=== PATIENT | female | born 1960 | race Hispanic/Latino ===

== ENCOUNTER 2018-08-28 13:26 | Emergency (ER) | payer BC ==
--- NOTE | 2018-08-28 14:03 | RAD ---
EXAM: Right ankle 3 views: HISTORY: Right ankle injury COMPARISON: None FINDINGS: Calcaneal Achilles and plantar enthesophytes. 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 Degenerative changes. No acute fracture or dislocation or other significant acute osseous abnormality. IMPRESSION: No significant acute process.
== END 2018-08-28 14:30 | disposition home or self-care (01) ==
LOC: MADERS 13:26
DX: S90.01XA Contusion of right ankle, initial encounter (principal); I10 Essential (primary) hypertension; F17.210 Nicotine dependence, cigarettes, uncomplicated; F41.9 Anxiety disorder, unspecified; F32.9 Major depressive disorder, single episode, unspecified; Z79.01 Long term (current) use of anticoagulants; Z79.82 Long term (current) use of aspirin; Z79.899 Other long term (current) drug therapy; W22.8XXA Striking against or struck by other objects, initial encounter